=== PATIENT | male | born 1985 | race Caucasian/White ===

== ENCOUNTER 2017-10-22 20:51 | Emergency (ER) | payer OTHER, BC ==
[2017-10-22 23:10] LABS: CHLORIDE,CL 104 mmol/L (101-111); SODIUM,NA 136 mmol/L (135-145)
--- NOTE | 2017-10-23 00:53 | EDM.PDOC ---
ED HPI GENERAL MEDICAL PROBLEM - General Chief Complaint: General Stated Complaint: SICK [id number] Time Seen by Provider: 10/22/17 22:30 Source of Information: Reports: Patient, RN Notes Reviewed History Limitations: Reports: No Limitations - History of Present Illness INITIAL COMMENTS - FREE TEXT/NARRATIVE: ED with c/o dizzy spells for past 1.5 years, Used to occur one time per month and gradual increase in frequency. Today estimates 20 times. Notes last 5-20 secs, feels off balance or going to passout. @ episodes last after a couple of beers. Has not been able to associate with ,stress, activity, movement, time of day. Relates minor TBI without loss of consciousness while serving in [employer]. No recent illness. 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 Headache Pain Score (Numeric/FACES): 1 Chest Pain Score (Numeric/FACES): 2 - Related Data Allergies Allergy/AdvReac Type Severity Reaction Status Date / Time No Known Allergies Allergy Verified 10/22/17 22:33 Home Meds: Home Meds Fish Oil/[place]-3 Fatty Acids [Fish Oil] 3 cap PO DAILY 10/22/17 [History] Omeprazole 20 mg PO DAILY 10/22/17 [History] Past Medical History HEENT History: Reports: Impaired Vision Cardiovascular History: Reports: High Cholesterol Respiratory History: Reports: Sleep Apnea Gastrointestinal History: Reports: Hiatal Hernia Musculoskeletal History: Reports: Arthritis, Fracture, Other (See Below) Other Musculoskeletal History: nose fracture, tail bone fracture Neurological History: Reports: Brain Injury, Migraines, Other (See Below) Other Neuro History: Mild TBI 2009 Psychiatric History: Reports: Anxiety, Depression, PTSD Other Psychiatric History: Remission, has not had problems with it for awhile - Infectious Disease History Infectious Disease History: Reports: Chicken Pox - Past Surgical History HEENT Surgical History: Reports: Other (See Below) Other HEENT Surgeries/Procedures: septum surgery X2 Social & Family History - Tobacco Use Smoking Status *Q: Former Smoker Used Tobacco, but Quit: Yes Month/Year Tobacco Last Used: 6 - Caffeine Use Caffeine Use: Reports: Coffee, Soda - Recreational Drug Use Recreational Drug Use: No ED ROS GENERAL - Review of Systems Review Of Systems: See Below Constitutional: Reports: No Symptoms HEENT: Reports: No Symptoms Respiratory: Reports: No Symptoms Cardiovascular: Reports: Chest Pain (ocassion with spells). Denies: Dyspnea on Exertion, Syncope GI/Abdominal: Reports: Nausea (rare with episode) : Reports: No Symptoms Musculoskeletal: Reports: No Symptoms Skin: Reports: No Symptoms Neurological: Reports: Headache (intermittent after episode, lasts approximately one hour, not severe) Psychiatric: Reports: Anxiety (hx, hx PTSD). Denies: Depression Hematologic/Lymphatic: Reports: No Symptoms Immunologic: Reports: No Symptoms ED EXAM, GENERAL - Physical Exam Exam: See Below Exam Limited By: No Limitations General Appearance: Alert, No Apparent Distress Eye Exam: Bilateral Eye: EOMI, PERRL (5mm) Ears: Normal External Exam, Normal TMs Nose: Normal Inspection Throat/Mouth: Normal Inspection, Normal Teeth, Normal Voice Head: Atraumatic, Normocephalic Neck: Normal Inspection, Full Range of Motion. No: Lymphadenopathy (L), Lymphadenopathy (R) Respiratory/Chest: No Respiratory Distress, Lungs Clear, Normal Breath Sounds Cardiovascular: Normal Peripheral Pulses, Regular Rate, Rhythm, No Edema, No Murmur GI/Abdominal: Normal Bowel Sounds Back Exam: Full Range of Motion Extremities: Normal Inspection Neurological: Alert, Oriented, CN II-XII Intact, Normal Cognition, Normal Gait Psychiatric: Normal Affect, Flat Affect (minimal facial expression, minimal eye contact soft spoken) Skin Exam: Warm, Dry, Intact, Normal Color, No Rash, Tattoo(s). No: Jaundice Course - Vital Signs Last Recorded V/S: Last Vital Signs Temp 97.4 F 10/23/17 00:45 Pulse 63 10/23/17 00:45 Resp 16 10/23/17 00:45 BP 140/85 10/23/17 00:45 Pulse Ox 98 10/23/17 00:45 - Orders/Labs/Meds Orders: Active Orders 24 hr Category Date Time Status EKG 12 Lead [EKG Documentation Completion] [RC] URGENT Care 10/22/17 22:37 Active UA W/MICROSCOPIC [URIN] Stat Lab 10/22/17 23:20 Ordered Labs: Laboratory Tests 10/22/17 10/22/17 10/22/17 Range/Units 22:40 22:40 23:20 WBC 9.6 (5.0-10.0) 10^3/uL RBC 5.13 (4.6-6.2) 10^6/uL Hgb 15.5 (14.0-18.0) g/dL Hct 44.5 (40.0-54.0) % MCV 86.7 (80-100) fL MCH 30.2 (27.0-34.0) pg MCHC 34.8 (33.0-35.0) g/dL Plt Count 317 (150-450) 10^3/uL Neut % (Auto) 47.7 (42.2-75.2) % Lymph % (Auto) 38.8 (20.5-50.1) % [place] % (Auto) 10.4 H (2-8) % Eos % (Auto) 2.1 (1.0-3.0) % Baso % (Auto) 1.0 (0.0-1.0) % Sodium 136 (135-145) mmol/L Potassium 3.7 (3.6-5.0) mmol/L Chloride 104 (101-111) mmol/L Carbon Dioxide 24.0 (21.0-31.0) mmol/L Anion Gap 11.7 BUN 13 (7-18) mg/dL Creatinine 1.0 (0.6-1.3) mg/dL Est Cr Clr Drug Dosing 115.32 mL/min Estimated GFR (MDRD) > 60 BUN/Creatinine Ratio 13.00 Glucose 136 H (74-105) mg/dL Calcium 9.9 (8.4-10.2) mg/dl Total Bilirubin 0.6 (0.2-1.0) mg/dL AST 60 H (10-42) IU/L ALT 151 H (10-60) IU/L Alkaline Phosphatase 65 (42-121) IU/L Total Protein 8.0 (6.7-8.2) g/dl Albumin 4.5 (3.2-5.5) g/dl Globulin 3.5 Albumin/Globulin Ratio 1.29 Amylase 65 (28-100) U/L Lipase 31 (22-51) U/L Urine Color Yellow (YELLOW) Urine Appearance Clear (CLEAR) Urine pH 7.0 (5.0-9.0) Ur Specific [place] 1.020 (1.005-1.030) Urine Protein Negative (NEGATIVE) Urine Glucose (UA) Negative (NEGATIVE) Urine Ketones Negative (NEGATIVE) Urine Occult Blood Negative (NEGATIVE) Urine Nitrite Negative (NEGATIVE) Urine Bilirubin Negative (NEGATIVE) Urine Urobilinogen 0.2 (0.2-1.0) mg/dL Ur Leukocyte Esterase Negative (NEGATIVE) Urine RBC 0-5 /HPF Urine WBC 0-5 (0-5/HPF) /HPF Ur Epithelial Cells Occasional /HPF Urine Bacteria Moderate H (0-FEW/HPF) /HPF - Radiology Interpretation Free Text/Narrative:: CT head: mild chronic maxillary sinusits, No acute intracranial finding - Re-Assessments/Exams Free Text/Narrative Re-Assessment/Exam: 10/23/17 05:10 Patient asymtomatic in ED. Informed results of studies. Discussed need for follow up for further evaluation with facility with higher level of care and service. Patient sx ongoing but increasing in frequency. No acute findings with today's exam. Departure - Departure Time of Disposition: 00:48 Disposition: Home, Self-Care 01 Condition: Good Clinical Impression: Dizzy spells - Discharge Information Instructions: Dizziness Referrals: PCP,None [Primary Care Provider] - Forms: ED Department Discharge Additional Instructions: Follow up with primary care for further evaluation avoid exposure to chemicals no driving until cause determined avoid alcohol - My Orders Last 24 Hours: My Active Orders 10/22/17 22:37 EKG 12 Lead [EKG Documentation Completion] [RC] URGENT 10/22/17 23:20 UA W/MICROSCOPIC [URIN] Stat - Assessment/Plan Last 24 Hours: My Active Orders 10/22/17 22:37 EKG 12 Lead [EKG Documentation Completion] [RC] URGENT 10/22/17 23:20 UA W/MICROSCOPIC [URIN] Stat
== END 2017-10-23 00:55 | disposition home or self-care (01) ==
LOC: DL.ED 20:51
DX: R42 Dizziness and giddiness (principal); Z79.899 Other long term (current) drug therapy; Z87.891 Personal history of nicotine dependence
CPT/HCPCS: 36415; 70450; 80053; 81001; 82150; 83690; 85025; 93005; 93010; 99283; 99284